=== PATIENT | male | born 1995 | race Caucasian/White ===

== ENCOUNTER 2017-02-14 17:00 | Emergency (ER) | payer OTHER ==
[~2017-02-14] VITALS: Ht 172.7 cm; Wt 87.7 kg
[2017-02-14 17:05] VITALS: TEMP 37; Ht 172.7 cm; Wt 87.7 kg
[2017-02-14] MEDS ORDERED: LORAZEPAM 2 MG/ML 1 ML VIAL IV STA (18:06)
[2017-02-14] MEDS ORDERED: SODIUM CHLORIDE 0.9% 1000ML 1,000 ML IV STA (18:06)
[2017-02-14 18:30] VITALS: O2SAT 96
[2017-02-14 18:36] LABS: BASO % 0.2 %; BASO ABS # 0.02 K/uL (0-0.2); COMPLETE YES; EOS % 1.7 %; HEMATOCRIT 50.7 % (42-52); IG% 0.2 %; LYMPH % 23.2 %; LYMPH ABS # 2.33 K/uL (1.2-3.4); MEAN CELL VOLUME 88.8 fL (80-100); MEAN CORPUSCULAR HEMOGLOBIN 30.8 pg (25-34); MEAN CORPUSCULAR HGB CONC 34.7 g/dl (32-36); MEAN PLATELET VOLUME 10.5 fL (7.4-10.4); MONO % 7.7 %; PLATELET COUNT 228 K/uL (130-400); RED BLOOD COUNT 5.71 M/uL (4.7-6.1); WHITE BLOOD COUNT 10.06 K/uL (4.8-10.8)
[2017-02-14 18:42] LABS: INR 1.1 (0.9-1.1); PROTHROMBIN TIME (PATIENT) 11.4 SECONDS (9.0-12.0)
[2017-02-14 18:54] LABS: POINT OF CARE TROPONIN I < 0.030 ng/ml (0-0.045)
[2017-02-14 19:01] LABS: ALKALINE PHOSPHATASE 34 U/L (45-117); ALT/SGPT 33 U/L (12-78); AST/SGOT 17 U/L (15-37); BLOOD UREA NITROGEN 16 mg/dl (7-18); BUN/CREATININE RATIO 12.3 (10-20); CARBON DIOXIDE 25 mmol/L (21-32); CHLORIDE 104 mmol/L (98-107); CKMB/CK RATIO 0.6 (0-3.0); CREATININE 1.33 mg/dl (0.60-1.40); GLUCOSE 89 mg/dl (70-99); POTASSIUM 4.3 mmol/L (3.5-5.1); SODIUM 138 mmol/L (136-145)
--- NOTE | 2017-02-14 19:07 | DIAGNOSTIC IMAGING REPORT ---
CHEST ONE VIEW PORTABLE CLINICAL HISTORY: 21 years-old Male presenting with Overdose. TECHNIQUE: Portable upright AP view of the chest was obtained. COMPARISON: None. FINDINGS: Cardiomediastinal silhouette normal. Lungs and pleural spaces clear. Dextroscoliotic curvature of the thoracic spine. Upper abdomen normal. IMPRESSION: 1. No acute cardiopulmonary disease. Electronically signed by: Howard Petty M.D. 02/14/2017 7:05 PM Dictated Date/Time: 02/14/2017 7:05 PM
[2017-02-14 19:14] LABS: ACETAMINOPHEN < 2 ug/ml (10-30)
--- NOTE | 2017-02-14 19:22 | DIAGNOSTIC IMAGING REPORT ---
HEAD WITHOUT CONTRAST (CT) CLINICAL HISTORY: 21 years-old Male presenting with OVERDOSE. TECHNIQUE: Multidetector CT imaging of the head was performed without the use of intravenous contrast. IV contrast: None. A dose lowering technique was used consistent with the principles of ALARA (as low as reasonably achievable). COMPARISON: None. CT DOSE (mGy.cm): The estimated cumulative dose is 687.98 mGy.cm. FINDINGS: [facility] Representative topogram: Unremarkable. Ventricles and sulci normal in size. Brain parenchyma normal in appearance with preserved maciel-white differentiation. No mass effect or midline shift. No hemorrhage or acute territorial infarct. No extra-axial fluid collection. Paranasal sinuses and mastoid air cells clear. Calvarium intact. IMPRESSION: 1. No acute intracranial abnormality. Electronically signed by: Howard Petty M.D. 02/14/2017 7:20 PM Dictated Date/Time: 02/14/2017 7:18 PM
[2017-02-14 19:26] LABS: URINE APPEARANCE CLEAR (CLEAR); URINE BILIRUBIN NEG (NEG); URINE COLOR DK YELLOW; URINE NITRITE NEG (NEG); URINE SPECIFIC GRAVITY 1.028 (1.000-1.030); UROBILINOGEN NEG (NEG)
[2017-02-14 19:31] LABS: MANUAL MICROSCOPIC REQUIRED? NO; REVIEW REQ? NO
[2017-02-14 19:55] LABS: BENZODIAZEPINE, URINE NEG (NEG); COCAINE,URINE POS (NEG); PHENCYCLIDINE, URINE NEG (NEG)
[2017-02-14 20:52] VITALS: BP 140/82; PULSE 84; O2SAT 98
--- NOTE | 2017-02-15 01:19 | EMERGENCY ROOM VISIT NOTE ---
History Report prepared by Diony: Tracee Brice Under the Supervision of: Dr. Flakito Porras M.D. First contact with patient: 18:02 Chief Complaint: OTHER COMPLAINT Stated Complaint: WEAKNESS History of Present Illness The patient is a 21 year old male who presents to the Emergency Room with complaints of an episode of chest pain beginning this morning, about 12 hrs ago. The patient reports he did "a lot" of cocaine about 2 days ago and that he was awake for 60 hours. He reports after being awake for 60 hours and he then slept for 20 hours. The patient states that before he slept for 20 hours he started to have a psychotic episode where he was hearing voices. He notes when he woke up he felt weak and when he stood up he passed out. The patient notes alcohol use when using the cocaine. His last cocaine use was about 24 hours ago. Presently, his chest pain is resolved but he reports feeling anxious and lightheaded. He notes an episode of "heart pain" which happened when he was waiting in the ED waiting room. He notes left arm numbness when he moves around. The patient reports vomiting and having leg muscle spasms yesterday. The patient was referred to the ED by [facility]. The patient recently drove from [place] to [place]. The patient is a [employer] Student and is from [place]. Pt denies headache, fevers, chills, diaphoresis, visual changes, neck pain, chest pain, breathing difficulties, nausea, vomiting, abdominal pain, back pain, melena, hematochezia, urinary symptoms, numbness, lymphadenopathy, rash, or other complaints. Source of History: patient Onset: this morning Position: chest Associated Symptoms: + chest pain, + vomiting, + weakness, + numbness Note: Pt notes feeling anxious and lightheaded. Review of Systems See HPI for pertinent positives and negatives. A total of ten systems were reviewed and were otherwise negative. Family History Patient reports no known family medical history. Social History Smoking Status: Current Every Day Smoker Alcohol Use: occasionally Drug Use: cocaine Housing Status: lives with roommate Occupation Status: [employer] student Current/Historical Medications No Active Prescriptions or Reported Meds Allergies Coded Allergies: NUTS (Verified Allergy, Severe, ANAPHYLAXIS, 02/14/17) Uncoded Allergies: FRUIT (Allergy, Severe, ANAPHYLAXIS, 02/14/17) SEAFOOD (Allergy, Severe, ANAPHYLAXIS, 02/14/17) Physical Exam Vital Signs Date Time Temp Pulse Resp B/P (MAP) Pulse Ox O2 Delivery O2 Flow Rate FiO2 02/14/17 20:52 84 20 140/82 98 02/14/17 19:03 80 20 134/67 96 Room Air 02/14/17 18:30 96 Room Air 02/14/17 18:22 89 02/14/17 17:05 37.0 90 18 146/83 96 Room Air Physical Exam GENERAL: Awake, alert, well-appearing, mildly agitated, in no distress HENT: Normocephalic, atraumatic. Oropharynx unremarkable. EYES: Normal conjunctiva. Sclera non-icteric. NECK: Supple. No nuchal rigidity. FROM. No JVD. RESPIRATORY: Clear to auscultation. CARDIAC: Borderline tachycardiac. Extremities warm and well perfused. Pulses equal. ABDOMEN: Soft, non-distended. No tenderness to palpation. No rebound or guarding. No masses. RECTAL: Deferred. MUSCULOSKELETAL: Chest examination reveals no tenderness. The back is symmetrical on inspection without obvious abnormality. There is no CVA tenderness to palpation. No joint edema. LOWER EXTREMITIES: Calves are equal size bilaterally and non-tender. No edema. No discoloration. NEURO: Normal sensorium. No sensory or motor deficits noted. SKIN: No rash or jaundice noted. Medical Decision & Procedures ER Provider Diagnostic Interpretation: Radiology results as stated below per my review and radiologist interpretation: CHEST ONE VIEW PORTABLE FINDINGS: Cardiomediastinal silhouette normal. Lungs and pleural spaces clear. Dextroscoliotic curvature of the thoracic spine. Upper abdomen normal. IMPRESSION: 1. No acute cardiopulmonary disease. Electronically signed by: Howard Petty M.D. HEAD WITHOUT CONTRAST (CT) FINDINGS: Maintenance Welder topogram: Unremarkable. Ventricles and sulci normal in size. Brain parenchyma normal in appearance with preserved maciel-white differentiation. No mass effect or midline shift. No hemorrhage or acute territorial infarct. No extra-axial fluid collection. Paranasal sinuses and mastoid air cells clear. Calvarium intact. IMPRESSION: 1. No acute intracranial abnormality. Electronically signed by: Howard Petty M.D. Laboratory Results 02/14/17 18:10 Red Blood Count 5.71, Mean Corpuscular Volume 88.8, Mean Corpuscular Hemoglobin 30.8, Mean Corpuscular Hemoglobin Concent 34.7, Mean Platelet Volume 10.5, Neutrophils (%) (Auto) 67.0, Lymphocytes (%) (Auto) 23.2, Monocytes (%) (Auto) 7.7, Eosinophils (%) (Auto) 1.7, Basophils (%) (Auto) 0.2, Neutrophils # (Auto) 6.75, Lymphocytes # (Auto) 2.33, Monocytes # (Auto) 0.77, Eosinophils # (Auto) 0.17, Basophils # (Auto) 0.02 02/14/17 18:10 Test 02/14/17 18:10 02/14/17 18:35 02/14/17 18:37 02/14/17 18:40 White Blood Count 10.06 K/uL (4.8-10.8) Red Blood Count 5.71 M/uL (4.7-6.1) Hemoglobin 17.6 g/dL (14.0-18.0) Hematocrit 50.7 % (42-52) Mean Corpuscular Volume 88.8 fL (80-100) Mean Corpuscular Hemoglobin 30.8 pg (25-34) Mean Corpuscular Hemoglobin Concent 34.7 g/dl (32-36) Platelet Count 228 K/uL (130-400) Mean Platelet Volume 10.5 fL (7.4-10.4) Neutrophils (%) (Auto) 67.0 % Lymphocytes (%) (Auto) 23.2 % Monocytes (%) (Auto) 7.7 % Eosinophils (%) (Auto) 1.7 % Basophils (%) (Auto) 0.2 % Neutrophils # (Auto) 6.75 K/uL (1.4-6.5) Lymphocytes # (Auto) 2.33 K/uL (1.2-3.4) Monocytes # (Auto) 0.77 K/uL (0.11-0.59) Eosinophils # (Auto) 0.17 K/uL (0-0.5) Basophils # (Auto) 0.02 K/uL (0-0.2) RDW Standard Deviation 42.8 fL (36.4-46.3) RDW Coefficient of Variation 13.1 % (11.5-14.5) Immature Granulocyte % (Auto) 0.2 % Immature Granulocyte # (Auto) 0.02 K/uL (0.00-0.02) Prothrombin Time 11.4 SECONDS (9.0-12.0) Prothromb Time International Ratio 1.1 (0.9-1.1) Activated Partial Thromboplast Time 26.8 SECONDS (21.0-31.0) Partial Thromboplastin Ratio 1.0 Anion Gap 9.0 mmol/L (3-11) Est Creatinine Clear Calc Drug Dose 94.6 ml/min Estimated GFR () 87.9 Estimated GFR (Non- 75.9 BUN/Creatinine Ratio 12.3 (10-20) Calcium Level 9.0 mg/dl (8.5-10.1) Total Bilirubin 0.4 mg/dl (0.2-1) Direct Bilirubin mg/dl (0-0.2) Aspartate Amino Transf (AST/SGOT) 17 U/L (15-37) Alanine Aminotransferase (ALT/SGPT) 33 U/L (12-78) Alkaline Phosphatase 34 U/L (45-117) Total Creatine Kinase 213 U/L (39-308) Creatine Kinase MB 1.2 ng/ml (0.5-3.6) Creatine Kinase MB Ratio 0.6 (0-3.0) Total Protein 7.8 gm/dl (6.4-8.2) Albumin 4.1 gm/dl (3.4-5.0) Lipase 85 U/L (73-393) Chemistry Specimen Hemolysis Salicylates Level 3.3 mg/dl (2.8-20) Acetaminophen Level < 2 ug/ml (10-30) Bedside D-Dimer 249 ng/mlFEU (0-450) Bedside Troponin I < 0.030 ng/ml (0-0.045) Ethyl Alcohol mg/dL < 3.0 mg/dl (0-3) Bedside Glucose 96 mg/dl (70-99) Test 02/14/17 18:54 02/14/17 19:25 Urine Color DK YELLOW Urine Appearance CLEAR (CLEAR) Urine pH 6.0 (4.5-7.5) Urine Specific [place] 1.028 (1.000-1.030) Urine Protein NEG (NEG) Urine Glucose (UA) NEG (NEG) Urine Ketones TRACE (NEG) Urine Occult Blood NEG (NEG) Urine Nitrite NEG (NEG) Urine Bilirubin NEG (NEG) Urine Urobilinogen NEG (NEG) Urine Leukocyte Esterase NEG (NEG) Urine Opiates Screen NEG (NEG) Urine Methadone, Qualitative NEG (NEG) Urine Barbiturates NEG (NEG) Urine Phencyclidine (PCP) Level NEG (NEG) Ur Amphetamine/Methamphetamine NEG (NEG) MDMA (Ecstasy) Screen NEG (NEG) Urine Benzodiazepines Screen NEG (NEG) Urine Cocaine Metabolite POS (NEG) Urine Marijuana (THC) POS (NEG) Osmolality 291 mOsm/kg (280-300) Laboratory results reviewed by me Medications Administered Medications (Trade) Dose Ordered Sig/Grace Route Start Time Stop Time Status Last Admin Dose Admin Sodium Chloride 1,000 ml @ 999 mls/hr Q1H1M STAT IV 02/14/17 18:06 02/14/17 19:06 DC 02/14/17 19:02 999 MLS/HR Lorazepam (Ativan Inj) 0.5 mg NOW STAT IV 02/14/17 18:06 02/14/17 18:29 DC 02/14/17 19:01 0.5 MG ECG Indication: chest pain Rate (beats per minute): 107 Rhythm: sinus tachycardia Findings: no acute ischemic change, no ectopy ED Course 1803: The patient was evaluated in room C10. A complete history and physical exam was performed. 1805: Ordered Lorazepam 0.5 mg IV, Sodium Chloride 1000 ml @ 999 mls/hr IV. 2030: The patient is feeling well. He is now asymptomatic. I discussed cessation of drug and tobacco use. 2048: I reevaluated the patient. Discussed results and discharge instructions: He verbalized understanding and agreement. The patient is ready for discharge. Medical Decision Triage Nursing notes reviewed. The patient's presentation and history were concerning for cocaine abuse and the above complaints. Etiologies such as toxicologic, infection, hypoglycemia, electrolyte abnormalities, cardiac sources, intracerebral event, neurologic, mood disorder, as well as others were entertained. The patient was evaluated. Clinically he was doing well. He was somewhat anxious. He was concerned about his health due to the cocaine use and insomnia. The patient had an ECG performed which was completely normal with regards to his hernia, ectopy or ischemia. He Was given a dose of Ativan. On reassessment he felt much better. His CBC, chemistry panel, urinalysis, cardiac markers and d-dimer were negative. The patient was reassessed. He was doing well. CT imaging and chest x-ray were unremarkable as well. The patient was counseled on his drug use as well as smoking. As he has had chest symptoms over the last few days as well as for 12 hours today with a negative workup I believe he can be safely discharged to follow-up with [facility] and avoid any further drug use. I gave my usual and customary discussion regarding this issue. By the evaluation outlined above other emergent etiologies such as those listed in the differential, as well as others, were deemed relatively unlikely. The patient was educated about the findings as listed above. All questions were answered and the patient was pleased with the treatment. Return instructions were outlined and the patient was discharged in stable condition. The patient was referred to [facility] for follow-up for a recheck of the current condition. Blood Pressure Screening Patient's blood pressure: Elevated blood pressure Blood pressure disposition: Referred to PCP Impression Primary Impression: Cocaine abuse Additional Impressions: Insomnia Chest pain Scribe Attestation The scribe's documentation has been prepared under my direction and personally reviewed by me in its entirety. I confirm that the note above accurately reflects all work, treatment, procedures, and medical decision making performed by me. Departure Information Dispostion Home / Self-Care Prescriptions No Active Prescriptions or Reported Meds Referrals No Doctor, Assigned (PCP) Forms HOME CARE DOCUMENTATION FORM, IMPORTANT VISIT INFORMATION, WORK / SCHOOL INSTRUCTIONS Patient Instructions Cocaine Effects, Cocaine Get Help, [facility] Additional Instructions Ibuprofen(Motrin, Advil) may be used for fever or pain. Use 600mg every six hours as needed. Take with food. Avoid using more than 2400mg in a 24 hour period. Do not use 2400mg per day for more than three consecutive days without physician direction. Prolonged inappropriate use can lead to stomach upset or ulcers. (AND/OR) Acetaminophen(Tylenol) may be used for fever or pain. Use 1000mg every six hours as needed. Avoid using more than 4000mg in a 24 hour period. Rest and drink plenty of fluids as tolerated. Do not do drugs. Stop smoking. Avoid strenuous activities this week. Resume normal activities once your symptoms resolve. Return to the ER immediately for worsening or persistent chest pain, abdominal pain, vomiting, fevers, chest pains, difficulty breathing, worsening of your condition, or as needed. Follow up with [facility] tomorrow for a recheck of your current condition. Problem Qualifiers Additional Impressions: Chest pain Chest pain type: unspecified Qualified Codes: R07.9 - Chest pain, unspecified
[2017-02-17 13:52] LABS: COCAINE, URINE 1530 NG/ML (CUTOFF=100)
== END 2017-02-14 20:52 | disposition home or self-care (01) ==
LOC: C.EDB 17:02 → C.EDC 20:52
DX: F14.10 Cocaine abuse, uncomplicated (principal); G47.00 Insomnia, unspecified; R07.9 Chest pain, unspecified; R00.0 Tachycardia, unspecified; F17.200 Nicotine dependence, unspecified, uncomplicated; Z91.018 Allergy to other foods

== ENCOUNTER 2017-07-03 15:13 | Emergency (ER) | payer SELFPAY ==
[~2017-07-03] VITALS: Ht 172.7 cm; Wt 80.0 kg
[2017-07-03 15:17] VITALS: TEMP 36.3; Ht 172.7 cm; Wt 80.0 kg
[2017-07-03] MEDS ORDERED: NICOTINE POLACRILEX 2 MG GUM MT PRN (16:00)
[2017-07-03 16:16] LABS: BASO % 0.1 %; BASO ABS # 0.01 K/uL (0-0.2); EOS % 1.7 %; EOS ABS # 0.14 K/uL (0-0.5); HEMATOCRIT 51.6 % (42-52); IG# 0.01 K/uL (0.00-0.02); LYMPH % 29.3 %; LYMPH ABS # 2.38 K/uL (1.2-3.4); MEAN CELL VOLUME 89.4 fL (80-100); MEAN CORPUSCULAR HEMOGLOBIN 31.2 pg (25-34); MEAN CORPUSCULAR HGB CONC 34.9 g/dl (32-36); MEAN PLATELET VOLUME 10.6 fL (7.4-10.4); MONO % 7.3 %; MONO ABS # 0.59 K/uL (0.11-0.59); NEUT % 61.5 %; NEUT ABS # 4.99 K/uL (1.4-6.5); PLATELET COUNT 213 K/uL (130-400); RED CELL DISTRIBUTION WIDTH CV 14.2 % (11.5-14.5); RED CELL DISTRIBUTION WIDTH SD 46.5 fL (36.4-46.3); WHITE BLOOD COUNT 8.12 K/uL (4.8-10.8)
[2017-07-03] MEDS ORDERED: ACNE CREAM TD (16:23)
--- NOTE | 2017-07-03 16:28 | DIAGNOSTIC IMAGING REPORT ---
CHEST ONE VIEW PORTABLE CLINICAL HISTORY: 21 years-old Male presenting with Mood Disorder. TECHNIQUE: Portable upright AP view of the chest was obtained. COMPARISON: 02/14/2017. FINDINGS: Cardiomediastinal silhouette normal. No focal opacity. No large effusion or pneumothorax. Dextroscoliotic curvature of the thoracic spine. Upper abdomen normal. IMPRESSION: 1. No acute cardiopulmonary disease. Electronically signed by: Howard Petty M.D. 07/03/2017 4:26 PM Dictated Date/Time: 07/03/2017 4:25 PM
[2017-07-03 16:35] LABS: ALBUMIN 3.9 gm/dl (3.4-5.0); ALT/SGPT 37 U/L (12-78); AST/SGOT 14 U/L (15-37); BLOOD UREA NITROGEN 13 mg/dl (7-18); CALCIUM 9.3 mg/dl (8.5-10.1); CARBON DIOXIDE 27 mmol/L (21-32); CREATININE 1.15 mg/dl (0.60-1.40); GLUCOSE 71 mg/dl (70-99); POTASSIUM 4.3 mmol/L (3.5-5.1); SODIUM 141 mmol/L (136-145)
[2017-07-03 16:46] LABS: ALKALINE PHOSPHATASE 31 U/L (45-117); TOTAL PROTEIN 7.6 gm/dl (6.4-8.2)
--- NOTE | 2017-07-03 18:50 | DIAGNOSTIC IMAGING REPORT ---
L KNEE 3 VIEWS CLINICAL HISTORY: 21 years-old Male presenting with left knee pain, overdose. TECHNIQUE: Frontal, lateral, and sunrise views of the left knee were obtained. COMPARISON: None. FINDINGS: No acute fracture or malalignment. No patellar subluxation. No advanced degenerative change. Trace knee joint effusion. IMPRESSION: No acute osseous injury. Electronically signed by: Howard Petty M.D. 07/03/2017 6:48 PM Dictated Date/Time: 07/03/2017 6:47 PM
[2017-07-03 18:52] VITALS: BP 116/62; PULSE 82; O2SAT 94
--- NOTE | 2017-07-03 21:24 | EMERGENCY ROOM VISIT NOTE ---
History Report prepared by Diony: Linda Wheeler Under the Supervision of: Dr. Jeyson Velásquez D.O. First contact with patient: 15:41 Chief Complaint: OVERDOSE (INTENTIONAL) Stated Complaint: MENTAL HEALTH,DIZZINESS,DISORIENTATION History of Present Illness The patient is a 21 year old male who presents to the Emergency Room with complaints of persistent drug overdose starting 3 days ago. The patient purchased tramadol and Xanax for recreational use last week. He took 1000 mg of Tramadol last week. He has not taken Tramadol since 2 days ago. He also took 10 2 mg Xanax over the past 3 days. He last took Xanax yesterday. He also had some alcohol yesterday. His mother called his friend and asked him to bring the patient to the ED. They had both been unable to contact the patient for the past 2 days. He denies taking anything today. 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 He notes that he gets depressed after taking the Xanax. He hears voices when he is on Xanax. He is having burning in his chest like indigestion which is typical for him. He denies any headache, change in vision, neck pain, or SOB. Source of History: patient, friend Onset: 3 days ago Position: other (generalized) Symptom Intensity: 1000 mg Tramadol, 20 mg Xanax Quality: other (overdose) Timing: other (persistent) Associated Symptoms: + chest pain, No headache, No neck pain, No SOB Review of Systems See HPI for pertinent positives & negatives. A total of 10 systems reviewed and were otherwise negative. Past Medical & Surgical Medical Problems: (1) Urticaria pigmentosa Family History Cancer Diabetes mellitus FH: lung disease Heart disease Hypertension Seizures Social History Smoking Status: Current Every Day Smoker Alcohol Use: occasionally Drug Use: cocaine, other Occupation Status: [employer] student Current/Historical Medications Scheduled [Acne Cream], 1 APPLN TD DIRECTED Allergies Coded Allergies: NUTS (Verified Allergy, Severe, ANAPHYLAXIS, 07/03/17) Uncoded Allergies: FRUIT (Allergy, Severe, ANAPHYLAXIS, 02/14/17) SEAFOOD (Allergy, Severe, ANAPHYLAXIS, 02/14/17) Physical Exam Vital Signs Date Time Temp Pulse Resp B/P (MAP) Pulse Ox O2 Delivery O2 Flow Rate FiO2 07/03/17 18:52 82 20 116/62 94 07/03/17 17:27 72 20 124/49 97 Room Air 07/03/17 15:17 36.3 89 20 97/60 99 Room Air Physical Exam GENERAL: Sitting up in bed, falling over, slurring words, no acute distress. HEAD: normocephalic, atraumatic EYE EXAM: normal conjunctiva. PERRL and EOM's grossly intact. OROPHARYNX: no exudate, no erythema, lips, buccal mucosa, and tongue normal and mucous membranes are moist NECK: supple, no nuchal rigidity, no adenopathy, non-tender LUNGS: Clear to auscultation. Normal chest wall mechanics HEART: no murmurs, S1 normal and S2 normal ABDOMEN: abdomen soft, non-tender, normo-active bowel sounds, no masses, no rebound or guarding. BACK: Back is symmetrical on inspection and there is no deformity, no midline tenderness, no CVA tenderness. SKIN: no rashes and no bruising UPPER EXTREMITIES: upper extremities are grossly normal. LOWER EXTREMITIES: No pitting edema. NEURO EXAM: Awake, alert, oriented to person, place, and time. No focal deficit. Medical Decision & Procedures ER Provider Diagnostic Interpretation: Radiology results as stated below per my review and the radiologist's interpretation: CHEST ONE VIEW PORTABLE CLINICAL HISTORY: 21 years-old Male presenting with Mood Disorder. TECHNIQUE: Portable upright AP view of the chest was obtained. COMPARISON: 02/14/2017. FINDINGS: Cardiomediastinal silhouette normal. No focal opacity. No large effusion or pneumothorax. Dextroscoliotic curvature of the thoracic spine. Upper abdomen normal. IMPRESSION: 1. No acute cardiopulmonary disease. Electronically signed by: Howard Petty M.D. 07/03/2017 4:26 PM Dictated Date/Time: 07/03/2017 4:25 PM L KNEE 3 VIEWS CLINICAL HISTORY: 21 years-old Male presenting with left knee pain, overdose. TECHNIQUE: Frontal, lateral, and sunrise views of the left knee were obtained. COMPARISON: None. FINDINGS: No acute fracture or malalignment. No patellar subluxation. No advanced degenerative change. Trace knee joint effusion. IMPRESSION: No acute osseous injury. Electronically signed by: Howard Petty M.D. 07/03/2017 6:48 PM Dictated Date/Time: 07/03/2017 6:47 PM Laboratory Results 07/03/17 15:53 Red Blood Count 5.77, Mean Corpuscular Volume 89.4, Mean Corpuscular Hemoglobin 31.2, Mean Corpuscular Hemoglobin Concent 34.9, Mean Platelet Volume 10.6, Neutrophils (%) (Auto) 61.5, Lymphocytes (%) (Auto) 29.3, Monocytes (%) (Auto) 7.3, Eosinophils (%) (Auto) 1.7, Basophils (%) (Auto) 0.1, Neutrophils # (Auto) 4.99, Lymphocytes # (Auto) 2.38, Monocytes # (Auto) 0.59, Eosinophils # (Auto) 0.14, Basophils # (Auto) 0.01 07/03/17 15:53 Test 07/03/17 15:30 07/03/17 15:53 07/03/17 16:16 Urine Color DK YELLOW Urine Appearance CLEAR (CLEAR) Urine pH 6.0 (4.5-7.5) Urine Specific Finley 1.024 (1.000-1.030) Urine Protein NEG (NEG) Urine Glucose (UA) NEG (NEG) Urine Ketones 1+ (NEG) Urine Occult Blood NEG (NEG) Urine Nitrite NEG (NEG) Urine Bilirubin NEG (NEG) Urine Urobilinogen NEG (NEG) Urine Leukocyte Esterase NEG (NEG) Urine Opiates Screen NEG (NEG) Urine Methadone, Qualitative NEG (NEG) Urine Barbiturates NEG (NEG) Urine Phencyclidine (PCP) Level NEG (NEG) Ur Amphetamine/Methamphetamine NEG (NEG) MDMA (Ecstasy) Screen NEG (NEG) Urine Benzodiazepines Screen POS (NEG) Urine Cocaine Metabolite NEG (NEG) Urine Marijuana (THC) POS (NEG) White Blood Count 8.12 K/uL (4.8-10.8) Red Blood Count 5.77 M/uL (4.7-6.1) Hemoglobin 18.0 g/dL (14.0-18.0) Hematocrit 51.6 % (42-52) Mean Corpuscular Volume 89.4 fL (80-100) Mean Corpuscular Hemoglobin 31.2 pg (25-34) Mean Corpuscular Hemoglobin Concent 34.9 g/dl (32-36) Platelet Count 213 K/uL (130-400) Mean Platelet Volume 10.6 fL (7.4-10.4) Neutrophils (%) (Auto) 61.5 % Lymphocytes (%) (Auto) 29.3 % Monocytes (%) (Auto) 7.3 % Eosinophils (%) (Auto) 1.7 % Basophils (%) (Auto) 0.1 % Neutrophils # (Auto) 4.99 K/uL (1.4-6.5) Lymphocytes # (Auto) 2.38 K/uL (1.2-3.4) Monocytes # (Auto) 0.59 K/uL (0.11-0.59) Eosinophils # (Auto) 0.14 K/uL (0-0.5) Basophils # (Auto) 0.01 K/uL (0-0.2) RDW Standard Deviation 46.5 fL (36.4-46.3) RDW Coefficient of Variation 14.2 % (11.5-14.5) Immature Granulocyte % (Auto) 0.1 % Immature Granulocyte # (Auto) 0.01 K/uL (0.00-0.02) Anion Gap 7.0 mmol/L (3-11) Est Creatinine Clear Calc Drug Dose 98.3 ml/min Estimated GFR () 104.8 Estimated GFR (Non- 90.5 BUN/Creatinine Ratio 11.4 (10-20) Calcium Level 9.3 mg/dl (8.5-10.1) Total Bilirubin 0.5 mg/dl (0.2-1) Direct Bilirubin 0.1 mg/dl (0-0.2) Aspartate Amino Transf (AST/SGOT) 14 U/L (15-37) Alanine Aminotransferase (ALT/SGPT) 37 U/L (12-78) Alkaline Phosphatase 31 U/L (45-117) Troponin I < 0.015 ng/ml (0-0.045) Total Protein 7.6 gm/dl (6.4-8.2) Albumin 3.9 gm/dl (3.4-5.0) Thyroid Stimulating Hormone (TSH) 1.150 uIu/ml (0.300-4.500) Ethyl Alcohol mg/dL < 3.0 mg/dl (0-3) Bedside Glucose 69 mg/dl (70-99) Laboratory results per my review. Medications Administered Medications (Trade) Dose Ordered Sig/Grace Route Start Time Stop Time Status Last Admin Dose Admin Nicotine Polacrilex (Nicorette 2MG Gum) 1 piece PRN PRN MT 07/03/17 16:00 07/03/17 19:05 DC 07/03/17 16:03 1 PIECE ECG Per My Interpretation Indication: chest pain Rate (beats per minute): 70 Rhythm: sinus rhythm Findings: other (normal axis, J point elevation septal anterior and lateral, poor baseline) ED Course ED COURSE: Vital signs were reviewed and showed normal vitals. The patients medical record was reviewed The above diagnostic studies were performed and reviewed. ED treatments and interventions as stated above. 1542: The patient was evaluated in room A6. A complete history and physical examination was performed. 1600: Nicotine Polacrilex 1 piece MT. 1720: Repeat EKG per my interpretation shows sinus rhythm, rate 72, continued J point elevation in septal, anterior, and lateral leads. 181: I reevaluated the patient. He is having knee pain after falling out of bed. Friend and mom deny that patient has any suicidal ideation or is a danger to himself. He would like to go home. 1843: Upon reevaluation, the patient is resting comfortably. I discussed my findings with the patient and he understands and agrees with the treatment plan. Based on the patients age, coexisting illnesses, exam and lab findings the decision to treat as an outpatient was made. The patient remained stable while under my care. The patient appeared well at the time of discharge. Medical Decision Differential diagnosis: Etiologies such as toxicologic, infection, hypoglycemia, electrolyte abnormalities, cardiac sources, intracerebral event, neurologic, as well as others were entertained. Patient is a 21-year-old male who presents the ER brought in by friends who are concerned as he has been abusing benzos and Ultram over the past week. He admits to taking benzodiazepines yesterday and denies taking any medications today. He is currently under the influence of something at this time. He is oriented to person place and time. He is able to follow commands. CBC along with BMP, LFTs, bilirubin and TSH was unremarkable. Troponin was negative with reflux that has been present all day. Benzos and marijuana positive. UA was negative. Chest x-ray was unremarkable and x-ray of the knee show no fractures. Discussed with roommates and mom was on the phone as well. None of a believe that he is a danger to himself or would be willing to sign him in. He denied any suicidal homicidal ideations. After prolonged conversation patient was discharged as he wanted to leave and friends were willing to take care of him for tonight. I do feel this is reasonable at this time. Of note he did have left knee pain as he fell onto his knee while in his room. He was able to walk on this following x-rays. He was able to follow conversation and was oriented to person place and time. Discussed with Pt concerning signs and symptoms to watch out for. Pt was instructed to follow up with their PCP and discussed with the patient their option to return to the ED at anytime for persistent or worsening symptoms. The appropriate anticipatory guidance and out- patient management, including indications for return to the emergency department , were explained at length to the patient and understood. Medication Reconcilliation Current Medication List: was personally reviewed by me Blood Pressure Screening Patient's blood pressure: Normal blood pressure Blood pressure disposition: Did not require urgent referral Impression Primary Impression: Intoxication by drug Additional Impressions: Drug abuse Left knee pain Scribe Attestation The scribe's documentation has been prepared under my direction and personally reviewed by me in its entirety. I confirm that the note above accurately reflects all work, treatment, procedures, and medical decision making performed by me. Departure Information Dispostion Home / Self-Care Forms WORK / SCHOOL INSTRUCTIONS, HOME CARE DOCUMENTATION FORM, IMPORTANT VISIT INFORMATION Patient Instructions My [facility], ED Drug Abuse General Additional Instructions Please follow up with your primary care doctor or if you are a student, [facility] with in the next 24 hours. Any worsening of your symptoms, please return to the ED immediately. This includes any fevers greater than 100.4, worsening pain, chest pain, shortness breath, persistent nausea, vomiting, unable to eat or drink, or any other concerning signs or symptoms from your standpoint. You should not drive for the next 24 hours until you are completely sober. Please refrain from taking any more Ultram/tramadol and benzos. These can kill you either individually or in combination. They are even more dangerous in combination with alcohol. If you are taking benzodiazepines on a regular basis he should gradually taper down on these and discuss this with S; he did deny taking these on a regular basis. Problem Qualifiers Primary Impression: Intoxication by drug Complication of substance-induced condition: uncomplicated Qualified Codes: F19.920 - Other psychoactive substance use, unspecified with intoxication, uncomplicated Additional Impressions: Left knee pain Chronicity: acute Qualified Codes: M25.562 - Pain in left knee
== END 2017-07-03 18:43 | disposition home or self-care (01) ==
LOC: C.EDB 15:15 → C.EDA 18:43
DX: F19.920 Other psychoactive substance use, unspecified with intoxication, uncomplicated (principal); Z71.51 Drug abuse counseling and surveillance of drug abuser; M25.562 Pain in left knee; F17.200 Nicotine dependence, unspecified, uncomplicated; Z91.010 Allergy to peanuts

== ENCOUNTER → 2017-07-10 | Outpatient (CLI) | payer OTHER ==
[~2017-07-10] MED LIST: ACNE CREAM TD
== END | disposition home or self-care (01) ==
LOC: C.LAB 21:47
DX: Z02.83 Encounter for blood-alcohol and blood-drug test (principal)

== ENCOUNTER 2017-07-27 20:47 | Emergency (ER) | payer SELFPAY ==
[~2017-07-27] VITALS: Ht 172.7 cm; Wt 77.0 kg
[2017-07-27 20:54] VITALS: TEMP 37.3; Ht 172.7 cm; Wt 77.0 kg
[2017-07-27 21:04] VITALS: O2SAT 99
[2017-07-27] MEDS ORDERED: SODIUM CHLORIDE 0.9% 1000ML 1,000 ML IV ONE ×2 (21:30)
[2017-07-27 21:35] LABS: BASO % 0.1 %; BASO ABS # 0.01 K/uL (0-0.2); EOS % 1.9 %; EOS ABS # 0.17 K/uL (0-0.5); HEMATOCRIT 45.2 % (42-52); HEMOGLOBIN 16.1 g/dL (14.0-18.0); IG# 0.02 K/uL (0.00-0.02); LYMPH % 28.7 %; MEAN CELL VOLUME 86.4 fL (80-100); MEAN CORPUSCULAR HEMOGLOBIN 30.8 pg (25-34); MEAN CORPUSCULAR HGB CONC 35.6 g/dl (32-36); MEAN PLATELET VOLUME 11.3 fL (7.4-10.4); MONO % 8.4 %; MONO ABS # 0.76 K/uL (0.11-0.59); NEUT % 60.7 %; PLATELET COUNT 178 K/uL (130-400); RED CELL DISTRIBUTION WIDTH CV 13.6 % (11.5-14.5); RED CELL DISTRIBUTION WIDTH SD 43.3 fL (36.4-46.3); WHITE BLOOD COUNT 9.06 K/uL (4.8-10.8)
[2017-07-27] MEDS ORDERED: DiphenhydrAMINE HCL 50 MG/ML VIAL IV STA (21:35)
[2017-07-27] MEDS ORDERED: LORAZEPAM INJ 1 MG in SYRINGE 0.5 ML IV STA (21:35)
[2017-07-27 21:41] LABS: ALBUMIN 4.1 gm/dl (3.4-5.0); AST/SGOT 16 U/L (15-37); BLOOD UREA NITROGEN 8 mg/dl (7-18); CARBON DIOXIDE 27 mmol/L (21-32); CREATININE 0.97 mg/dl (0.60-1.40); GLUCOSE 83 mg/dl (70-99); POTASSIUM 3.7 mmol/L (3.5-5.1); SODIUM 143 mmol/L (136-145)
[2017-07-27 21:46] LABS: ALKALINE PHOSPHATASE 43 U/L (45-117); ALT/SGPT 37 U/L (12-78); TOTAL PROTEIN 7.2 gm/dl (6.4-8.2)
[2017-07-27] MEDS ORDERED: LORAZEPAM 2 MG/ML 1 ML VIAL ONE (21:47)
--- NOTE | 2017-07-27 22:08 | EMERGENCY ROOM VISIT NOTE ---
History First contact with patient: 21:08 Chief Complaint: CARDIAC ASSESSMENT Stated Complaint: CHEST PAIN Nursing Triage Summary: patient having involutary muscle spasms after having 6 red bulls, marrajuana, and pills he found on the ground. confused at times and repeating self often while changing the story often. History of Present Illness The patient is a 21 year old male who presents to the Emergency Room with complaints of after being found acting strangely by campus security. Per EMS, the patient was found going down his stairs. He reportedly drinks 6 red Bill over the last 12 hours. He also reportedly took a dose of Concerta this afternoon and smoked a joint. He also has had intermittent use of cocaine. The patient is unable to tell me the last time he used cocaine. The HPI is limited as the patient is refusing to answer any of my questions. He keeps asking "am I going to ?" Review of Systems Unable to perform secondary to altered mental state Past Medical/Surgical History Medical Problems: (1) Urticaria pigmentosa Family History Cancer Diabetes mellitus FH: lung disease Heart disease Hypertension Seizures Social History Smoking Status: Current Every Day Smoker Alcohol Use: occasionally Drug Use: cocaine, marijuana, other Occupation Status: [employer] Current/Historical Medications Scheduled [Acne Cream], 1 APPLN TD DIRECTED Physical Exam Vital Signs Date Time Temp Pulse Resp B/P (MAP) Pulse Ox O2 Delivery O2 Flow Rate FiO2 07/27/17 22:38 80 17 131/69 99 Room Air 07/27/17 22:22 79 15 100 Room Air 07/27/17 21:52 75 17 124/66 97 Room Air 07/27/17 21:04 99 Room Air 07/27/17 21:00 Room Air 07/27/17 20:55 89 07/27/17 20:54 37.3 103 20 147/68 98 Room Air Physical Exam GENERAL: 21-year-old male, agitated, SKIN: The skin was without rashes, erythema, edema, or bruising. HEAD: Normocephalic atraumatic. EYES: Pupils dilated but equal and reactive Extraocular movements intact. MOUTH: Mucous membranes dry NECK: Supple without nuchal rigidity. No JVD. HEART: Tachycardic, regular rhythm without murmurs gallops or rubs. LUNGS: Clear to auscultation bilaterally without wheezes, rales or rhonchi. No accessory muscle use. ABDOMEN: Positive bowel sounds x 4.Soft, nontender, MUSCULOSKELETAL: No muscle atrophy, erythema, or edema noted. Strength 5/5 throughout. NEURO: Patient was alert and oriented to person place and time. Tremor noted. Normal sensation to touch. No focal neurological deficits. Medical Decision & Procedures Laboratory Results 07/27/17 21:10 Red Blood Count 5.23, Mean Corpuscular Volume 86.4, Mean Corpuscular Hemoglobin 30.8, Mean Corpuscular Hemoglobin Concent 35.6, Mean Platelet Volume 11.3, Neutrophils (%) (Auto) 60.7, Lymphocytes (%) (Auto) 28.7, Monocytes (%) (Auto) 8.4, Eosinophils (%) (Auto) 1.9, Basophils (%) (Auto) 0.1, Neutrophils # (Auto) 5.50, Lymphocytes # (Auto) 2.60, Monocytes # (Auto) 0.76, Eosinophils # (Auto) 0.17, Basophils # (Auto) 0.01 07/27/17 21:10 Test 07/27/17 21:10 07/27/17 21:30 07/27/17 23:07 White Blood Count 9.06 K/uL (4.8-10.8) Red Blood Count 5.23 M/uL (4.7-6.1) Hemoglobin 16.1 g/dL (14.0-18.0) Hematocrit 45.2 % (42-52) Mean Corpuscular Volume 86.4 fL (80-100) Mean Corpuscular Hemoglobin 30.8 pg (25-34) Mean Corpuscular Hemoglobin Concent 35.6 g/dl (32-36) Platelet Count 178 K/uL (130-400) Mean Platelet Volume 11.3 fL (7.4-10.4) Neutrophils (%) (Auto) 60.7 % Lymphocytes (%) (Auto) 28.7 % Monocytes (%) (Auto) 8.4 % Eosinophils (%) (Auto) 1.9 % Basophils (%) (Auto) 0.1 % Neutrophils # (Auto) 5.50 K/uL (1.4-6.5) Lymphocytes # (Auto) 2.60 K/uL (1.2-3.4) Monocytes # (Auto) 0.76 K/uL (0.11-0.59) Eosinophils # (Auto) 0.17 K/uL (0-0.5) Basophils # (Auto) 0.01 K/uL (0-0.2) RDW Standard Deviation 43.3 fL (36.4-46.3) RDW Coefficient of Variation 13.6 % (11.5-14.5) Immature Granulocyte % (Auto) 0.2 % Immature Granulocyte # (Auto) 0.02 K/uL (0.00-0.02) Anion Gap 6.0 mmol/L (3-11) Est Creatinine Clear Calc Drug Dose 116.5 ml/min Estimated GFR () 128.8 Estimated GFR (Non- 111.1 BUN/Creatinine Ratio 8.2 (10-20) Calcium Level 9.0 mg/dl (8.5-10.1) Magnesium Level 1.9 mg/dl (1.8-2.4) Total Bilirubin 0.2 mg/dl (0.2-1) Aspartate Amino Transf (AST/SGOT) 16 U/L (15-37) Alanine Aminotransferase (ALT/SGPT) 37 U/L (12-78) Alkaline Phosphatase 43 U/L (45-117) Troponin I < 0.015 ng/ml (0-0.045) Total Protein 7.2 gm/dl (6.4-8.2) Albumin 4.1 gm/dl (3.4-5.0) Globulin 3.1 gm/dl (2.5-4.0) Albumin/Globulin Ratio 1.3 (0.9-2) Urine Opiates Screen NEG (NEG) Urine Methadone, Qualitative NEG (NEG) Urine Barbiturates NEG (NEG) Urine Phencyclidine (PCP) Level NEG (NEG) Ur Amphetamine/Methamphetamine NEG (NEG) MDMA (Ecstasy) Screen NEG (NEG) Urine Benzodiazepines Screen POS (NEG) Urine Cocaine Metabolite NEG (NEG) Urine Marijuana (THC) POS (NEG) Medications Administered Medications (Trade) Dose Ordered Sig/Grace Route Start Time Stop Time Status Last Admin Dose Admin Sodium Chloride 1,000 ml @ 999 mls/hr Q1H1M ONCE IV 07/27/17 21:30 07/27/17 22:30 DC 07/27/17 21:36 999 MLS/HR Sodium Chloride 1,000 ml @ 999 mls/hr Q1H1M ONCE IV 07/27/17 21:30 07/27/17 22:30 DC 07/27/17 21:36 999 MLS/HR Diphenhydramine HCl (Benadryl Inj) 25 mg NOW STAT IV 07/27/17 21:35 07/27/17 21:36 DC 07/27/17 21:49 25 MG Lorazepam (Ativan Inj) 2 mg STK-MED ONCE .ROUTE 07/27/17 21:47 07/27/17 21:48 DC 07/27/17 21:49 1 MG ECG Per My Interpretation Indication: other (Drug use) Rate (beats per minute): 83 Rhythm: normal sinus Findings: nonspecific-ST abn (Lateral) ED Course Patient was seen and examined Vital signs including blood pressure were reviewed medications list was verified with patient Labs were obtained, and a saline lock was established An EKG was performed, and the patient was put on a monitor He was hydrated with 2 L of normal saline He was given Ativan 1 mg IV. He was also given Benadryl 25 mg IV. Upon reevaluation, he was resting comfortably. We discussed his workup. He voiced understanding. The patient was unable to get a ride. Because of this, the patient was signed out to Kenyetta Acosta PA-C at change of shift. Please see her note for details Medical Decision Differential diagnosis: Drug overdose, arrhythmia, dehydration This patient is a 21-year-old male that was brought in by EMS with reportedly drug overdose. There is questionable use of cocaine, marijuana, Concerta on top of multiple energy drinks. On exam, he was agitated and slightly tachycardic. He appeared dehydrated. His EKG shows normal sinus rhythm. No signs of ischemia. His troponin is negative. Electrolytes within normal limits. The patient was medicated with Ativan and Benadryl with good response. The patient was unable to find a ride. He was held in the emergency department for several hours. He was signed out to Kenyetta Acosta PA-C at change of shift. Please see her note for final disposition. This chart was completed in part utilizing [employer] Voice Recognition software. Attempts were made to minimize the grammatical errors, random word insertions, pronoun errors and incomplete sentences. Any formal questions or concerns about the content, text or information contained within the body of this dictation should be directly addressed to the provider for clarification. Impression Primary Impression: Drug overdose Departure Information Dispostion Home / Self-Care Condition GOOD Referrals No Doctor, Assigned (PCP) Patient Instructions My [facility] Additional Instructions You were seen in the emergency department for a drug overdose Do not drive a vehicle or operate machinery for at least 24 hours Stay well-hydrated Refrain from use or misuse of drugs such as Concerta, marijuana or cocaine. These are very dangerous substances. They may cause very serious health issues including Follow-up with [facility] services Return to the ER with any concerning symptoms
--- NOTE | 2017-07-28 00:50 | EMERGENCY ROOM VISIT NOTE ---
ED Visit Note This case is signed out to me from LINN Zacarias, pending reevaluation and patient sobering up in stable condition. This is a 21-year-old gentleman who smoked a bowl of marijuana took some Concerta and drinks 6 red bolus. He came in for feeling chest pain, shaky and anxious. Patient was initially evaluated and hydrated and giving antianxiety medications. Patient was reevaluated by myself and felt much better. He requested to leave. He is no longer tachycardic. He had no medical complaints. Patient was strongly encouraged to avoid illegal drugs and excessive caffeine use. He was informed he can go into renal failure from excessive caffeine use. Patient was strongly encouraged to stay well-hydrated, rest, eat a healthy diet and get 8 hours of sleep at night and to follow-up with health services in a few days or here in the ER sooner for chest pain, difficulty breathing, worsening signs or symptoms or as needed. Patient was neurovascularly and neurologically intact. He is well-appearing. He did not have an acute abdomen on exam. Stable vital signs. He was discharged home in the care of his friend. Diagnoses #1: Polysubstance abuse #2 noncardiac chest pain Problem List Medical Problems: (1) Urticaria pigmentosa Status: Resolved Current/Historical Medications Scheduled [Acne Cream], 1 APPLN TD DIRECTED Allergies Coded Allergies: NUTS (Verified Allergy, Severe, ANAPHYLAXIS, 07/28/17) Uncoded Allergies: FRUIT (Allergy, Severe, ANAPHYLAXIS, 02/14/17) SEAFOOD (Allergy, Severe, ANAPHYLAXIS, 02/14/17) Vital Signs Date Time Temp Pulse Resp B/P (MAP) Pulse Ox O2 Delivery O2 Flow Rate FiO2 07/27/17 22:38 80 17 131/69 99 Room Air 07/27/17 22:22 79 15 100 Room Air 07/27/17 21:52 75 17 124/66 97 Room Air 07/27/17 21:04 99 Room Air 07/27/17 21:00 Room Air 07/27/17 20:55 89 07/27/17 20:54 37.3 103 20 147/68 98 Room Air Laboratory Results 07/27/17 21:10 Red Blood Count 5.23, Mean Corpuscular Volume 86.4, Mean Corpuscular Hemoglobin 30.8, Mean Corpuscular Hemoglobin Concent 35.6, Mean Platelet Volume 11.3, Neutrophils (%) (Auto) 60.7, Lymphocytes (%) (Auto) 28.7, Monocytes (%) (Auto) 8.4, Eosinophils (%) (Auto) 1.9, Basophils (%) (Auto) 0.1, Neutrophils # (Auto) 5.50, Lymphocytes # (Auto) 2.60, Monocytes # (Auto) 0.76, Eosinophils # (Auto) 0.17, Basophils # (Auto) 0.01 07/27/17 21:10 Test 07/27/17 21:10 07/27/17 21:30 White Blood Count 9.06 K/uL (4.8-10.8) Red Blood Count 5.23 M/uL (4.7-6.1) Hemoglobin 16.1 g/dL (14.0-18.0) Hematocrit 45.2 % (42-52) Mean Corpuscular Volume 86.4 fL (80-100) Mean Corpuscular Hemoglobin 30.8 pg (25-34) Mean Corpuscular Hemoglobin Concent 35.6 g/dl (32-36) Platelet Count 178 K/uL (130-400) Mean Platelet Volume 11.3 fL (7.4-10.4) Neutrophils (%) (Auto) 60.7 % Lymphocytes (%) (Auto) 28.7 % Monocytes (%) (Auto) 8.4 % Eosinophils (%) (Auto) 1.9 % Basophils (%) (Auto) 0.1 % Neutrophils # (Auto) 5.50 K/uL (1.4-6.5) Lymphocytes # (Auto) 2.60 K/uL (1.2-3.4) Monocytes # (Auto) 0.76 K/uL (0.11-0.59) Eosinophils # (Auto) 0.17 K/uL (0-0.5) Basophils # (Auto) 0.01 K/uL (0-0.2) RDW Standard Deviation 43.3 fL (36.4-46.3) RDW Coefficient of Variation 13.6 % (11.5-14.5) Immature Granulocyte % (Auto) 0.2 % Immature Granulocyte # (Auto) 0.02 K/uL (0.00-0.02) Anion Gap 6.0 mmol/L (3-11) Est Creatinine Clear Calc Drug Dose 116.5 ml/min Estimated GFR () 128.8 Estimated GFR (Non- 111.1 BUN/Creatinine Ratio 8.2 (10-20) Calcium Level 9.0 mg/dl (8.5-10.1) Magnesium Level 1.9 mg/dl (1.8-2.4) Total Bilirubin 0.2 mg/dl (0.2-1) Aspartate Amino Transf (AST/SGOT) 16 U/L (15-37) Alanine Aminotransferase (ALT/SGPT) 37 U/L (12-78) Alkaline Phosphatase 43 U/L (45-117) Total Creatine Kinase 115 U/L (39-308) Troponin I < 0.015 ng/ml (0-0.045) Total Protein 7.2 gm/dl (6.4-8.2) Albumin 4.1 gm/dl (3.4-5.0) Globulin 3.1 gm/dl (2.5-4.0) Albumin/Globulin Ratio 1.3 (0.9-2) Urine Opiates Screen NEG (NEG) Urine Methadone, Qualitative NEG (NEG) Urine Barbiturates NEG (NEG) Urine Phencyclidine (PCP) Level NEG (NEG) Ur Amphetamine/Methamphetamine NEG (NEG) MDMA (Ecstasy) Screen NEG (NEG) Urine Benzodiazepines Screen POS (NEG) Urine Cocaine Metabolite NEG (NEG) Urine Marijuana (THC) POS (NEG) Medications Administered Medications (Trade) Dose Ordered Sig/Grace Route Start Time Stop Time Status Last Admin Dose Admin Sodium Chloride 1,000 ml @ 999 mls/hr Q1H1M ONCE IV 07/27/17 21:30 07/27/17 22:30 DC 07/27/17 21:36 999 MLS/HR Sodium Chloride 1,000 ml @ 999 mls/hr Q1H1M ONCE IV 07/27/17 21:30 07/27/17 22:30 DC 07/27/17 21:36 999 MLS/HR Diphenhydramine HCl (Benadryl Inj) 25 mg NOW STAT IV 07/27/17 21:35 07/27/17 21:36 DC 07/27/17 21:49 25 MG Lorazepam (Ativan Inj) 2 mg STK-MED ONCE .ROUTE 07/27/17 21:47 07/27/17 21:48 DC 07/27/17 21:49 1 MG Departure Information Impression Primary Impression: Drug overdose Dispostion Home / Self-Care Condition GOOD Referrals No Doctor, Assigned (PCP) Forms IMPORTANT VISIT INFORMATION Patient Instructions My [facility] Additional Instructions You were seen in the emergency department for a drug overdose Do not drive a vehicle or operate machinery for at least 24 hours Stay well-hydrated Refrain from use or misuse of drugs such as Concerta, marijuana or cocaine. These are very dangerous substances. They may cause very serious health issues including Follow-up with [facility] Return to the ER with any concerning symptoms
[2017-07-28 01:15] VITALS: BP 126/76; PULSE 81; O2SAT 98
== END 2017-07-28 01:16 | disposition home or self-care (01) ==
LOC: EDBD 20:47 → C.EDC 20:49
DX: T50.901A Poisoning by unspecified drugs, medicaments and biological substances, accidental (unintentional), initial encounter (principal); R00.0 Tachycardia, unspecified; F12.90 Cannabis use, unspecified, uncomplicated; F14.90 Cocaine use, unspecified, uncomplicated; F15.90 Other stimulant use, unspecified, uncomplicated; F17.200 Nicotine dependence, unspecified, uncomplicated